=== PATIENT | male | born 1975 | race Caucasian/White ===

== ENCOUNTER 2017-09-23 11:09 | Observation (INO) | payer MEDICAID ==
[2017-09-23 13:22] LABS: BASO % 0.3 % (0.0-2.0); HEMOGLOBIN 14.7 g/dL (12.0-18.0); LYMPH # 0.6 K/uL (1.0-4.3); LYMPH % 5.4 % (20.0-40.0); MEAN CELL VOLUME 83.6 fL (80.0-94.0); MEAN CORPUSCULAR HEMOGLOBIN 29.2 pg (27.0-31.0); MEAN CORPUSCULAR HGB CONC 34.9 g/dL (33.0-37.0); MEAN PLATELET VOLUME 8.9 fL (7.2-11.7); MONO # 0.3 K/uL (0.0-0.8); MONO % 2.2 % (0.0-10.0); NEUT # 10.7 K/uL (1.8-7.0); NEUT % 92.1 % (50.0-75.0); NRBC % 0.1 % (0.0-2.0); PLATELET COUNT 320 K/uL (130-400); RBC 5.04 Mil/uL (4.40-5.90); RED CELL DISTRIBUTION WIDTH 14.2 % (11.5-14.5); WHITE BLOOD COUNT 11.6 K/uL (4.8-10.8)
[2017-09-23 13:25] LABS: URINE BILIRUBIN NEGATIVE (NEGATIVE); URINE COLOR Yellow (YELLOW); URINE GLUCOSE (UA) NORMAL (Normal); URINE LEUKOCYTE ESTERASE NEG Leu/uL (Negative); URINE NITRATE NEGATIVE (NEGATIVE); URINE PROTEIN NEGATIVE (NEGATIVE); URINE UROBILINOGEN NORMAL mg/dL (0.2-1.0)
[2017-09-23] MEDS ORDERED: Sodium Chloride 0.9% 1,000 ML IV ONE (13:35)
[2017-09-23 13:38] LABS: ALB/GLOB RATIO 1.4 (1.0-2.1); ALBUMIN 4.7 g/dL (3.5-5.0); ALT/SGPT 40 U/L (21-72); AST/SGOT 22 U/L (17-59); BLOOD UREA NITROGEN 16 mg/dL (9-20); CALCIUM 9.3 mg/dl (8.6-10.4); GFR AFRICAN-AMERICAN > 60; GFR NON-AFRICAN AMERICAN > 60; LIPASE 73 U/L (23-300)
[2017-09-23 13:40] LABS: URINE BLOOD 1+ (NEGATIVE); URINE CLARITY Hazy (Clear)
[2017-09-23] MEDS ORDERED: Sodium Chloride 0.9% 1,000 ML ONE (13:50)
[2017-09-23 14:01] LABS: BANDS 4 % (0-2); LYMPHOCYTE 3 % (20-40); MONOCYTE 5 % (0-10); NEUTROPHIL 88 % (50-75); PLATELET ESTIMATE NORMAL (NORMAL); TOTAL CELLS COUNTED 100
[2017-09-23 14:02] LABS: GIANT PLATELETS PRESENT
--- NOTE | 2017-09-23 15:13 | C.PDOC ---
History Of Present Illness 42 year old male presents to the ED for evaluation of right upper quadrant abdominal pain which has been ongoing for "months" and worsened today. Patient notes the pain radiates to the right side of his back and is associated with nausea and vomiting and is unable to tolerating PO. Patient denies fever, chills , GI bleeding, urinary/bowel incontinence, extremity numbness/weakness. Time Seen by Provider: 09/23/17 12:40 Chief Complaint (Nursing): Back Pain History Per: Patient History/Exam Limitations: no limitations Onset/Duration Of Symptoms: Other (months ) Current Symptoms Are (Timing): Worse Quality Of Discomfort: "Pain" Previous Symptoms: Back Pain (right) Associated Symptoms: denies: Incontinence, New Weakness, New Numbness Additional History Per: Patient Past Medical History Reviewed: Historical Data, Nursing Documentation, Vital Signs Vital Signs: Last Vital Signs Temp 97.5 F L 09/23/17 11:11 Pulse 65 09/23/17 18:16 Resp 16 09/23/17 18:16 BP 129/69 09/23/17 18:16 Pulse Ox 100 09/23/17 18:51 - Medical History PMH: No Chronic Diseases Surgical History: No Surg Hx Family History: States: Unknown Family Hx - Social History Hx Tobacco Use: No Hx Alcohol Use: Yes Hx Substance Use: No - Immunization History Hx Tetanus Toxoid Vaccination: No Hx Influenza Vaccination: No Hx Pneumococcal Vaccination: No Review Of Systems Constitutional: Negative for: Fever, Chills Gastrointestinal: Positive for: Nausea, Vomiting, Abdominal Pain (right upper quadrant ) Genitourinary: Negative for: Incontinence Musculoskeletal: Positive for: Back Pain (right) Neurological: Negative for: Weakness, Numbness Physical Exam - Physical Exam Appears: Non-toxic, No Acute Distress Skin: Normal Color, Warm, Dry, No Rash Head: Atraumatic, Normacephalic Eye(s): bilateral: Normal Inspection Oral Mucosa: Moist Neck: Normal ROM, Supple Chest: Symmetrical, No Deformity, No Tenderness Cardiovascular: Rhythm Regular, No Friction Rub, No Murmur Respiratory: Normal Breath Sounds, No Rales, No Rhonchi, No Wheezing Gastrointestinal/Abdominal: Soft, Tenderness (right upper quadrant ), No Guarding, No Rebound Back: Normal Inspection, No CVA Tenderness Extremity: Normal ROM, Capillary Refill (less than 2 seconds ), No Swelling Neurological/Psych: Oriented x3, Normal Speech, Normal Cognition, Normal Motor Gait: Steady ED Course And Treatment - Laboratory Results Result Diagrams: 09/23/17 13:15 09/23/17 13:15 O2 Sat by Pulse Oximetry: 100 (on RA) Pulse Ox Interpretation: Normal Medical Decision Making Medical Decision Making: Progress: Bloodwork, urinalysis, Abdomen US ordered and reviewed. Pepcid IVP, Toradol IVP, Zofran IVP and IV Fluids administered. The case was discussed with Dr. Estrella (gen surgery oncall) who states that she agrees to admit the patient to her service. Case was discussed with Dr. John ( nursing surgical services director) who will evaluate the patient at bedside. Disposition - Disposition Disposition: HOSPITALIZED Disposition Time: 14:00 Condition: FAIR - POA Present On Arrival: None - Clinical Impression Clinical Impression: Cholecystitis - PA / [employer]ER / Resident Statement MD/DO has reviewed & agrees with the documentation as recorded. - Scribe Statement The provider has reviewed the documentation as recorded by the Scribe (Jazmyne Nguyen) All medical record entries made by the Scribe were at my direction and personally dictated by me. I have reviewed the chart and agree that the record accurately reflects my personal performance of the history, physical exam, medical decision making, and the department course for this patient. I have also personally directed, reviewed, and agree with the discharge instructions and disposition.
--- NOTE | 2017-09-23 16:30 | US ---
HISTORY: RUQ abdominal pain, vomit COMPARISON: None available TECHNIQUE: Sonographic evaluation of the right upper quadrant of the abdomen. FINDINGS: LIVER: Measures 15.6 cm in length. Echogenic liver may be seen in setting of hepatic parenchymal disease or fatty infiltration. No focal hepatic mass identified. The main portal vein appears patent with normal directional flow. No intrahepatic bile duct dilatation. GALLBLADDER: Immobile gallstone at the gallbladder neck. Mild gallbladder wall thickening/ pericholecystic edema measuring approximately 4 mm. Negative sonographic Silva's sign as assessed by the investment banker. COMMON BILE DUCT: Measures 4 mm. PANCREAS: Not well-visualized. RIGHT KIDNEY: Measures 9.7 x 4.4 x 4.9 cm. No obstructing calculus or hydronephrosis identified. AORTA: Limited visualization appears grossly unremarkable. IVC: Limited visualization appears grossly unremarkable. OTHER FINDINGS: None . IMPRESSION: Echogenic liver may be seen in setting of hepatic parenchymal disease or fatty infiltration. Immobile gallstone within the gallbladder neck. Mild gallbladder wall thickening/ pericholecystic edema. Negative sonographic Silva sign as assessed by the investment banker. Correlate clinically for possibility of cholecystitis.
--- NOTE | 2017-09-23 19:14 | CP.PCM.HP ---
History of Present Illness - History of Present Illness History of Present Illness: General Surgery: Dr Estrella Pt is a 42M with no significant PMH who presents with ~24 hours of RUQ pain. Pt states pain at its worst is 8/10, and radiates to his right shoulder. Pain has been associated with nausea and vomiting, non-blood, non-billous. Pt denies any associated fevers. He has been unable to tolerate food since symptom onset. Pt reports he has had similar episodes in the past but usually they go away in 2-3 hours and this time it did not so he came to ED. PMH: none PSH: none NKDA Present on Admission - Present on Admission Any Indicators Present on Admission: No Review of Systems - Review of Systems All systems: reviewed and no additional remarkable complaints except (as per hpi ) Past Patient History - Infectious Disease Hx of Infectious Diseases: None - Past Social History Smoking Status: Former Smoker - PSYCHIATRIC Hx Substance Use: No - SURGICAL HISTORY Hx Surgeries: No - ANESTHESIA Hx Anesthesia: No Meds Allergies/Adverse Reactions: Allergies Allergy/AdvReac Type Severity Reaction Status Date / Time No Known Allergies Allergy Verified 09/23/17 11:13 Physical Exam - Constitutional Appears: Non-toxic, No Acute Distress - ENT Exam ENT Exam: Mucous Membranes Moist - Respiratory Exam Respiratory Exam: absent: Accessory Muscle Use, Respiratory Distress - Cardiovascular Exam Cardiovascular Exam: REGULAR RHYTHM - GI/Abdominal Exam GI & Abdominal Exam: Soft, Tenderness (RUQ to deep palpation). absent: Distended, Firm, Guarding, Hernia - Extremities Exam Extremities exam: Negative for: pedal edema - Neurological Exam Neurological exam: Alert, Oriented x3 - Psychiatric Exam Psychiatric exam: Normal Affect, Normal Mood - Skin Skin Exam: Normal Color, Warm Results - Vital Signs Recent Vital Signs: Last Vital Signs Temp 97.5 F L 09/23/17 11:11 Pulse 65 09/23/17 18:16 Resp 16 09/23/17 18:16 BP 129/69 09/23/17 18:16 Pulse Ox 100 09/23/17 18:52 - Labs Result Diagrams: 09/23/17 13:15 09/23/17 13:15 Labs: Laboratory Results - last 24 hr 09/23/17 09/23/17 09/23/17 13:15 13:15 13:15 WBC 11.6 H RBC 5.04 Hgb 14.7 Hct 42.2 MCV 83.6 MCH 29.2 MCHC 34.9 RDW 14.2 Plt Count 320 MPV 8.9 Neut % (Auto) 92.1 H Lymph % (Auto) 5.4 L [place] % (Auto) 2.2 Eos % (Auto) 0.0 Baso % (Auto) 0.3 Neut # (Auto) 10.7 H Lymph # (Auto) 0.6 L [place] # (Auto) 0.3 Eos # (Auto) 0.0 Baso # (Auto) 0.0 Neutrophils % (Manual) 88 H Band Neutrophils % 4 H Lymphocytes % (Manual) 3 L Monocytes % (Manual) 5 Platelet Estimate Normal Giant Platelets Present Sodium 139 Potassium 3.5 L Chloride 98 Carbon Dioxide 24 Anion Gap 20 BUN 16 Creatinine 0.6 L Est GFR ( Amer) > 60 Est GFR (Non-Af Amer) > 60 Random Glucose 131 H Calcium 9.3 Total Bilirubin 1.0 AST 22 ALT 40 Alkaline Phosphatase 73 Total Protein 8.0 Albumin 4.7 Globulin 3.4 Albumin/Globulin Ratio 1.4 Lipase 73 Urine Color Yellow Urine Clarity Hazy Urine pH 7.0 Ur Specific [place] 1.023 Urine Protein Negative Urine Glucose (UA) Normal Urine Ketones Negative Urine Blood 1+ H Urine Nitrate Negative Urine Bilirubin Negative Urine Urobilinogen Normal Ur Leukocyte Esterase Neg Urine WBC (Auto) 1 Urine RBC (Auto) 1 Assessment & Plan - Assessment and Plan (Free Text) Assessment: 42M with acute cholecystitis Plan: npo iv abx iv fluids OR tomorrow for lap becyk d/w Dr Sameer Garcia, PGY3
[2017-09-23] MEDS ORDERED: Sodium Chloride 0.9% 1,000 ML IV SCH (19:30)
[2017-09-23] MEDS: Piperacill/Tazo 4.5gm in Dex 4.5 GM/100 ML BAG IVPB SCH (19:48)
[2017-09-24] MEDS: Piperacill/Tazo 4.5gm in Dex 4.5 GM/100 ML BAG IVPB SCH ×3 (03:30→19:17)
[2017-09-24] MEDS ORDERED: Midazolam 2 MG/2 ML VIAL ONE (15:49)
[2017-09-24] MEDS ORDERED: Propofol 10 mg/ml Inj (20 ML) ONE (15:50)
[2017-09-24] MEDS ORDERED: Lactated Ringer's 1,000 ML IV ONE ×2 (15:50→16:30)
[2017-09-24] MEDS ORDERED: Rocuronium 10 mg/ml (5 ml) ONE (15:52)
[2017-09-24] MEDS ORDERED: HYDROmorphone 0.5 mg/0.5 ml ISec IVP PRN (17:01)
--- NOTE | 2017-09-24 17:26 | PCM.SURG1 ---
Surgeon's Initial Post Op Note - Surgeon's Notes Surgeon: Dr. Estrella Clinical Services Assistant: PGY1, Ricarda PATTERSONS3, Julio Cesar Type of Anesthesia: General Endo Pre-Operative Diagnosis: Acute cholecystitis Operative Findings: inflammed large gallbladder. for details see op note Post-Operative Diagnosis: as above Operation Performed: Laparoscopic Cholecystectomy Specimen/Specimens Removed: Galladder Estimated Blood Loss: EBL {In ML}: 50 Drains Used: No Drains Date of Surgery/Procedure: 09/24/17 Time of Surgery/Procedure: 17:26
[2017-09-25] MEDS: Piperacill/Tazo 4.5gm in Dex 4.5 GM/100 ML BAG IVPB SCH ×2 (04:05→12:18)
[2017-09-25 07:51] VITALS: BP 107/59; PULSE 58; RESP 20; TEMP 98; O2SAT 98
[2017-09-25 08:32] LABS: BASO % 0.3 % (0.0-2.0); LYMPH # 1.2 K/uL (1.0-4.3); LYMPH % 12.9 % (20.0-40.0); MEAN CELL VOLUME 84.8 fL (80.0-94.0); MEAN CORPUSCULAR HGB CONC 34.2 g/dL (33.0-37.0); MEAN PLATELET VOLUME 8.7 fL (7.2-11.7); MONO # 0.5 K/uL (0.0-0.8); MONO % 5.5 % (0.0-10.0); NEUT # 7.3 K/uL (1.8-7.0); NEUT % 81.3 % (50.0-75.0); RBC 4.21 Mil/uL (4.40-5.90); RED CELL DISTRIBUTION WIDTH 14.4 % (11.5-14.5)
[2017-09-25 08:34] LABS: HEMOGLOBIN 12.2 g/dL (12.0-18.0)
[2017-09-25] MEDS ORDERED: Oxycodone/Acetaminophen 5/325 mg Tab PO PRN (09:00)
--- NOTE | 2017-09-25 09:02 | CP.PCM.DIS ---
Provider - Provider Date of Admission: 09/23/17 16:56 Attending physician: Luba Estrella MD Time Spent in preparation of Discharge (in minutes): 10 Hospital Course - Lab Results Lab Results: Most Recent Lab Values WBC 9.0 K/uL (4.8-10.8) 09/25/17 08:24 RBC 4.21 Mil/uL (4.40-5.90) L 09/25/17 08:24 Hgb 12.2 g/dL (12.0-18.0) D 09/25/17 08:24 Hct 35.7 % (35.0-51.0) 09/25/17 08:24 MCV 84.8 fL (80.0-94.0) 09/25/17 08:24 MCH 29.0 pg (27.0-31.0) 09/25/17 08:24 MCHC 34.2 g/dL (33.0-37.0) 09/25/17 08:24 RDW 14.4 % (11.5-14.5) 09/25/17 08:24 Plt Count 235 K/uL (130-400) 09/25/17 08:24 MPV 8.7 fL (7.2-11.7) 09/25/17 08:24 Neut % (Auto) 81.3 % (50.0-75.0) H 09/25/17 08:24 Lymph % (Auto) 12.9 % (20.0-40.0) L 09/25/17 08:24 [place] % (Auto) 5.5 % (0.0-10.0) 09/25/17 08:24 Eos % (Auto) 0.0 % (0.0-4.0) 09/25/17 08:24 Baso % (Auto) 0.3 % (0.0-2.0) 09/25/17 08:24 Neut # (Auto) 7.3 K/uL (1.8-7.0) H 09/25/17 08:24 Lymph # (Auto) 1.2 K/uL (1.0-4.3) 09/25/17 08:24 [place] # (Auto) 0.5 K/uL (0.0-0.8) 09/25/17 08:24 Eos # (Auto) 0.0 K/uL (0.0-0.7) 09/25/17 08:24 Baso # (Auto) 0.0 K/uL (0.0-0.2) 09/25/17 08:24 Neutrophils % (Manual) 88 % (50-75) H 09/23/17 13:15 Band Neutrophils % 4 % (0-2) H 09/23/17 13:15 Lymphocytes % (Manual) 3 % (20-40) L 09/23/17 13:15 Monocytes % (Manual) 5 % (0-10) 09/23/17 13:15 Platelet Estimate Normal (NORMAL) 09/23/17 13:15 Giant Platelets Present 09/23/17 13:15 Sodium 139 mmol/L (132-148) 09/23/17 13:15 Potassium 3.5 mmol/L (3.6-5.2) L 09/23/17 13:15 Chloride 98 mmol/L (98-107) 09/23/17 13:15 Carbon Dioxide 24 mmol/L (22-30) 09/23/17 13:15 Anion Gap 20 (10-20) 09/23/17 13:15 BUN 16 mg/dL (9-20) 09/23/17 13:15 Creatinine 0.6 mg/dL (0.8-1.5) L 09/23/17 13:15 Est GFR ( Amer) > 60 09/23/17 13:15 Est GFR (Non-Af Amer) > 60 09/23/17 13:15 Random Glucose 131 mg/dL (75-110) H 09/23/17 13:15 Calcium 9.3 mg/dl (8.6-10.4) 09/23/17 13:15 Total Bilirubin 1.0 mg/dL (0.2-1.3) 09/23/17 13:15 AST 22 U/L (17-59) 09/23/17 13:15 ALT 40 U/L (21-72) 09/23/17 13:15 Alkaline Phosphatase 73 U/L (38-126) 09/23/17 13:15 Total Protein 8.0 g/dL (6.3-8.3) 09/23/17 13:15 Albumin 4.7 g/dL (3.5-5.0) 09/23/17 13:15 Globulin 3.4 gm/dL (2.2-3.9) 09/23/17 13:15 Albumin/Globulin Ratio 1.4 (1.0-2.1) 09/23/17 13:15 Lipase 73 U/L (23-300) 09/23/17 13:15 Urine Color Yellow (YELLOW) 09/23/17 13:15 Urine Clarity Hazy (Clear) 09/23/17 13:15 Urine pH 7.0 (5.0-8.0) 09/23/17 13:15 Ur Specific [place] 1.023 (1.003-1.030) 09/23/17 13:15 Urine Protein Negative mg/dL (NEGATIVE) 09/23/17 13:15 Urine Glucose (UA) Normal mg/dL (Normal) 09/23/17 13:15 Urine Ketones Negative mg/dL (NEGATIVE) 09/23/17 13:15 Urine Blood 1+ (NEGATIVE) H 09/23/17 13:15 Urine Nitrate Negative (NEGATIVE) 09/23/17 13:15 Urine Bilirubin Negative (NEGATIVE) 09/23/17 13:15 Urine Urobilinogen Normal mg/dL (0.2-1.0) 09/23/17 13:15 Ur Leukocyte Esterase Neg [place]/uL (Negative) 09/23/17 13:15 Urine WBC (Auto) 1 /hpf (0-5) 09/23/17 13:15 Urine RBC (Auto) 1 /hpf (0-3) 09/23/17 13:15 - Hospital Course Hospital Course: Pt is a 42M who presented to ED with acute onset RUQ pain. Dx with acute cholecystitis. Pt was taken to OR following day for laparoscopic cholecystectomy. Tolerated surgery well. Pt d/c today with rx for pain meds and f.u in office Discharge Exam - Head Exam Head Exam: NORMAL INSPECTION - Eye Exam Eye Exam: Normal appearance - Respiratory Exam Respiratory Exam: absent: Accessory Muscle Use, Respiratory Distress - Cardiovascular Exam Cardiovascular Exam: REGULAR RHYTHM. absent: Tachycardia - GI/Abdominal Exam GI & Abdominal Exam: Soft, Tenderness (post-op and appropriate). absent: Distended, Firm, Guarding, Hernia, Rigid - Neurological Exam Neurological exam: Alert, Oriented x3 - Psychiatric Exam Psychiatric exam: Normal Affect, Normal Mood - Skin Skin Exam: Normal Color, Warm Discharge Plan - Follow Up Plan Condition: FAIR Disposition: HOME/ ROUTINE
[2017-09-25 09:22] LABS: ALB/GLOB RATIO 1.3 (1.0-2.1); ALBUMIN 3.4 g/dL (3.5-5.0); ALT/SGPT 66 U/L (21-72); AST/SGOT 66 U/L (17-59); BLOOD UREA NITROGEN 12 mg/dL (9-20); CALCIUM 8.8 mg/dl (8.6-10.4); GFR AFRICAN-AMERICAN > 60; GFR NON-AFRICAN AMERICAN > 60
[2017-09-25] MEDS ORDERED: Influenza Vaccine 60 mcg/0.5 mL SYR (4YR UP) IM ONE (10:00)
[2017-09-25] MEDS ORDERED: Pneumococcal 23-Valent Vaccine IM ONE (10:00)
--- NOTE | 2017-09-26 07:49 | OP ---
PROCEDURE DATE: 09/24/2017 PREOPERATIVE DIAGNOSIS: Acute cholecystitis. POSTOPERATIVE DIAGNOSIS: Acute cholecystitis. PROCEDURE: Laparoscopic cholecystectomy. SURGEON: Luba Estrella MD ENGINE SPECIALIST: Dr. Mota TYPE OF ANESTHESIA: General. ANESTHESIA ADMINISTERED BY: Dr. Calvert and LISA Ventura DESCRIPTION OF PROCEDURE: With the patient in the supine position under adequate with general anesthesia, the abdomen was prepped and draped in the usual sterile manner. Veress needle puncture was performed at the umbilicus with insufflation to 15 cm of water pressure of CO2 and a 10 mm laparoscopic trocar was inserted via an infraumbilical incision. Under direct vision, additional trocars were inserted in the epigastrium and right costal margin. The gallbladder was visualized. The fundus was grasped and elevated. There was a large amount of omentum adherent primarily to the liver edge, medial to the area of the gallbladder and this was taken down with a combination of sharp dissection and cautery to expose the remainder of the gallbladder. The gallbladder was then further elevated and noted to be thickened, although not tensely distended with a stone impacted near the infundibular area. The infundibulum was grasped below the stone and retracted laterally. The cystic duct was identified and dissected. The cystic duct was cleared towards the junction with the common bile duct. The cystic duct was then triply clipped and divided. Anterior and posterior branches of the cystic artery were identified and each was triply clipped and divided and the gallbladder was dissected from the liver bed using electrocautery. The liver bed was inspected for hemostasis and the dissection was completed. The gallbladder was placed in a specimen retrieval bag and removed via the umbilical port site which was enlarged slightly to accommodate the large stone. It was noted that the gallbladder was markedly elongated. The right upper quadrant was again irrigated and suctioned. The pneumoperitoneum was released and the trocars removed. The umbilical port site was closed with a [id number] fascial suture of 0 Vicryl. All incisions were closed with 4-0 Monocryl subcuticular sutures and Steri-Strips. Dry sterile dressings were applied. The patient tolerated the procedure well and transferred to recovery room in stable condition. Estimated blood loss for the procedure was 50 mL. Luba Estrella MD [facility] # [id number]
== END 2017-09-25 14:49 | disposition home or self-care (01) ==
LOC: C.ER 11:09 → C.9E 16:56 → C.3T 09-24 00:29
PROVIDERS: ADMIT Specialist; ATTEND Specialist
DX: K81.0 Acute cholecystitis (principal); Z87.891 Personal history of nicotine dependence; Z23 Encounter for immunization
CPT/HCPCS: 36415; 47562; 76705; 80053; 81001; 83690; 85025; 88304; 90674; 90732; 96360; 96365; 96374; 99285; G0008; G0009; G0378; J1100; J1885; J2250; J2405; J2704; J2765; J3010; J3480; J7040; J7120